=== PATIENT | female | born 2000 | race Caucasian/White ===

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

== ENCOUNTER 2020-02-01 09:04 | Emergency (ER) | payer OTHER ==
[~2020-02-01] VITALS: Ht 162.6 cm; Wt 50.0 kg
[2020-02-01 09:17] VITALS: BP 118/62
[2020-02-01] MEDS ORDERED: NEOMYCIN/POLYMY1 SOL AS (09:44)
== END 2020-02-01 09:57 | disposition home or self-care (01) ==
LOC: ED 09:04
DX: H60.92 Unspecified otitis externa, left ear (principal); F31.9 Bipolar disorder, unspecified; F17.200 Nicotine dependence, unspecified, uncomplicated

== ENCOUNTER 2022-03-23 15:07 | Emergency (ER) | payer OTHER ==
[~2022-03-23] VITALS: Ht 162.6 cm; Wt 72.0 kg
[~2022-03-23 15:07] MED LIST: NEOMYCIN/POLYMY1 SOL AS
[2022-03-23] MEDS ORDERED: BACTRIM DS1 TAB PO (16:46)
[2022-03-23] MEDS ORDERED: LORTAB 1010 MG PO (16:46)
[2022-03-23] MEDS ORDERED: CLEOCIN300 MG PO (16:46)
[2022-03-23 16:57] LABS: HEMATOCRIT 36.8 % (37.0-47.0); HEMOGLOBIN 12.2 g/dl (12.0-16.0); IMMATURE GRANULOCYTES 0.1 % (0.0-5.0); MEAN CELL VOLUME 85.6 fL CALC (80.0-100.0); MEAN CORPUSCULAR HGB 28.4 pG CALC (26.0-32.0); MEAN CORPUSCULAR HGB CONC 33.2 g/dL CAL (32.0-36.0); NEUT# 6.44 thou/uL (2.00-7.15); RED BLOOD COUNT 4.3 mill/uL (4.20-5.60); RED CELL DISTRI WIDTH 13.8 % (11.5-15.5)
[2022-03-23 17:21] LABS: ALBUMIN 3.9 g/dL (3.2-5.0); ALKALINE PHOSPHATASE 122 u/l (38-126); ANION GAP 11 (6-22 (CALC)); BILIRUBIN, TOTAL 0.3 mg/dL (0.0-1.4); BUN 12 mg/dL (7-17); BUN/CREATININE RATIO 12 (12-20 (CALC)); CARBON DIOXIDE 26 mmol/l (22-30); CHLORIDE 103 mmol/l (95-108); GFR FOR AFR.AMER. > 60 ML/MIN (>=60 (CALC)); GFR OTHER RACES > 60 ML/MIN (>=60 (CALC)); POTASSIUM 4.2 mmol/l (3.5-5.1); SGOT/AST 17 u/l (14-36); SODIUM 136 mmol/l (137-146); TOTAL PROTEIN 7.6 g/dL (6.3-8.2)
[2022-03-23 17:23] VITALS: BP 115/84
== END 2022-03-23 17:58 | disposition home or self-care (01) ==
LOC: ED 15:07
PROVIDERS: Emergency Medicine
DX: K13.0 Diseases of lips (principal); F17.200 Nicotine dependence, unspecified, uncomplicated